=== PATIENT | female | born 1980 | race Caucasian/White ===

== ENCOUNTER 2016-09-11 11:32 | Emergency (ER) | payer BC ==
[~2016-09-11 11:32] MED LIST: EFFEXOR XR150 M1 PO; ENALAPRIL MALEA10 M1 PO; FIORICET 50-301 EAC1 PO; PERCOCET 5-3251 EACH PO; VENLAFAXINE HCL75 M3 PO; XANAX XR0.5 M1 PO; ZYRTEC10 M7 PO
[2016-09-11] MEDS ORDERED: VENLAFAXINE HCL75 M3 PO (11:54)
[2016-09-11] MEDS ORDERED: FLONASE ALLERG9.9 ML (11:54)
[2016-09-11] MEDS ORDERED: IMITREX50 M2 PO (11:57)
[2016-09-11 12:13] LABS: ANION GAP 11 mmol/L (0-20); BLOOD UREA NITROGEN 15 mg/dl (6-24); CALCIUM 8.9 mg/dl (8.5-10.5); CARBON DIOXIDE-VENOUS 23 mmol/L (22-32); CHLORIDE 107 mmol/l (96-110); CREATININE 0.87 mg/dl (0.50-1.10); GLUCOSE 91 mg/dL (70-110); SODIUM 137 mmol/L (135-145); eGFR VALUE FOR BLACK >90 mL/Min
[2016-09-11 12:15] LABS: POTASSIUM 4.3 mmol/L (3.7-5.1)
[2016-09-11 12:18] LABS: PREGNANCY-SERUM NEGATIVE (NEGATIVE)
[2016-09-11 12:51] LABS: BASO % 0.7 % (0-2); BASO ABSOLUTE COUNT 0.1 tho/cmm (0.0-0.2); EOS % 0.7 % (0-7); EOSINOPHIL ABSOLUTE COUNT 0.1 tho/cmm (0.0-0.7); HCT-HEMATOCRIT 42.3 % (34.0-49.0); HGB-HEMOGLOBIN 14.5 gm/dl (12.0-15.5); IMMATURE GRANULOCYTES ABSOLUTE 0.01 tho/cmm (0-0.03); IMMATURE GRANULOCYTES PERCENT 0.1 % (0-0.3); LYMPH % 34.6 % (20-45); LYMPH ABSOLUTE COUNT 2.6 tho/cmm (0.8-4.5); MCH (MEAN CORPUSCULAR HGB) 30.3 pg (28.0-32.0); MCHC MEAN CORPUSCULAR HGB CONC 34.3 % (32.0-36.0); MCV (MEAN CELL VOLUME) 88.5 fl (82.0-96.0); MONO % 8.4 % (0-12); MONOCYTE ABSOLUTE COUNT 0.6 tho/cmm (0.0-1.2); NEUTROPHIL ABSOLUTE COUNT 4.2 tho/cmm (1.6-8.0); NEUTROPHIL-AUTOMATED 4.2 tho/cmm (1.6-8.0); NEUTROPHILS % 55.5 % (40-80); PLATELET COUNT 336 tho/cmm (150-450); RED BLOOD COUNT 4.78 mil/cmm (4.00-5.20); RED CELL DISTRIBUTION WIDTH 12.5 % (12.4-16.4); WHITE BLOOD COUNT 7.5 tho/cmm (4.0-10.0)
== END 2016-09-11 16:00 ==
LOC: EDMED 11:32
PROVIDERS: Emergency Medicine
DX: R07.89 Other chest pain (principal); I10 Essential (primary) hypertension; J45.909 Unspecified asthma, uncomplicated; Z98.890 Other specified postprocedural states; Z79.51 Long term (current) use of inhaled steroids; Z79.899 Other long term (current) drug therapy
CPT/HCPCS: J7030